=== PATIENT | female | born 1965 | race Two or more races ===

== ENCOUNTER 2019-02-04 08:48 | Inpatient (IN) | payer OTHER ==
--- NOTE | 2019-02-04 09:09 | PDOC ---
Attending Attestation - Resident Resident Name: SheltonTonja subramanian - ED Attending Attestation I have performed the following: I have examined & evaluated the patient, The case was reviewed & discussed with the resident, I agree w/resident's findings & plan, Exceptions are as noted - HPI HPI: 02/04/19 09:47 53yo female with intermittent episodes of cp over the last few weeks. Pt states L sided cp. No radiation. No sob. States intermittent palpitations. Also c/o dizziness and vertigo sensation. Pt denies n/v. States dizziness is worse when looking up and down. C/o intermittent steele. No f/c. No blurred vision or change in vision. No dysuria. No diarrhea. No abd pain. Hx of HLD. No nystagmus. Pt states dizziness is worse when laying flat and better when sitting up. - Physicial Exam PE: 02/04/19 11:31 Gen: [id number], speaks kesha and used principal librarian line heart: +s1s2 reg lungs: cta b/l abd: soft, nt/nd +bs ext: no c/c/e, no calf ttp neuro: cn ii-xii grossly intact, no nystagmus, 5/5 UE and LE strength, normal finger to nose, perrl, eomi, mmm, sensation intact - Medical Decision Making 02/04/19 11:32 a/p: 53yo female with hx of HLD with intermittent cp and palpitations and dizziness -concern for central causes of dizziness -will send labs and head ct -also concerned for cp - will send trops -will place on a digital media intern -will most likely need obs for neuro eval and cards eval for cp and dizziness -will send TSH for palpitations -no pleuritic cp, no PE risk factors 02/04/19 11:[address] negative no elevated wbc, h/h stable chem pending 02/04/19 12:54 elevated tsh trop negative added on free t4 microblog sent to [facility] for obs for cp and dizziness eval currently not dizzy or vertiginous. 02/04/19 13:[address] yaritza winslow Heart Score/ECG Review - ECG Intrepretation Comment:: 02/04/19 11:33 sinus at 70, nl axis, nl interval, no acute st/t wave findings
[2019-02-04] MEDS ORDERED: MECLIZINE HCL 25 MG TABLET (FP) PO ONE ×2 (09:55→11:43)
--- NOTE | 2019-02-04 10:06 | PDOC ---
History of Present Illness - General Chief Complaint: Lightheaded Stated Complaint: DIZZINESS Time Seen by Provider: 02/04/19 09:02 History Source: Patient Exam Limitations: Language Barrier (Oriana only, director of assessing phone) - History of Present Illness Initial Comments: 53 yo F PMH HLD, HTN, p/w consistent "room spinning" sensation for the last two days. It is triggered by laying down, and by moving her head either up or down, but not by moving left or right. She had R ear pain a week ago that she put some Ayurvedic drops in; this has since resolved. She also had L chest pain a month ago, which she did not do anything for. This is intermittently present currently. She has not tried any medications at home. ROS Endorses tingling in both hands She denies weakness, sensation of palpitations, diplopia, tinnitus, current CP, SOB, N/V, constipation/diarrhea, fevers/chills. 02/04/19 10:01 02/04/19 14:11 Past History - Past Medical History Allergies/Adverse Reactions: Allergies Allergy/AdvReac Type Severity Reaction Status Date / Time No Known Allergies Allergy Verified 02/04/19 08:52 Home Medications: Ambulatory Orders Fenofibrate,Micronized [Fenofibrate] 134 mg PO HS 02/04/19 Simvastatin [Zocor -] 40 mg PO HS 02/04/19 COPD: No Hypercholesterolemia: Yes - Suicide/Smoking/Psychosocial Hx Smoking History: Never smoked Information on smoking cessation initiated: No Review of Systems - Review of Systems Able to Perform ROS?: Yes Constitutional: No: Chills, Fever, Weakness HEENTM: No: Eye Pain, Blurred Vision, Double Vision, Tinnitus, Hearing Loss Respiratory: No: Cough, Shortness of Breath Cardiac (ROS): Yes: Chest Pain (comes and goes, L sided). No: Palpitations ABD/GI: No: Constipated, Diarrhea, Nausea, Vomiting Neurological: Yes: Tingling (both hands). No: Headache *Physical Exam - Vital Signs Last Vital Signs Temp Pulse Resp BP Pulse Ox 98.3 F 65 18 137/70 100 02/04/19 08:49 02/04/19 08:49 02/04/19 08:49 02/04/19 08:49 02/04/19 08:49 - Physical Exam General Appearance: Yes: Nourished, Appropriately Dressed HEENT: positive: EOMI, AUSTYN, Normal ENT Inspection, Normal Voice, Symmetrical, TMs Normal, Hearing Grossly Normal, Other (no nystagmus). negative: TM Bulging Neck: positive: Normal Thyroid, Supple. negative: Tender Respiratory/Chest: positive: Lungs Clear, Normal Breath Sounds Cardiovascular: positive: Regular Rhythm, Regular Rate, S1, S2, Other Gastrointestinal/Abdominal: positive: Normal Bowel Sounds, Soft. negative: Tender Musculoskeletal: positive: Normal Inspection. negative: CVA Tenderness Integumentary: positive: Normal Color, Dry, Warm Neurologic: positive: browning processor II-XII NML intact, Fully Oriented, Alert, Normal Mood/ Affect, Normal Response, Motor Strength 5/5, Finger to Nose (intact, no dysmetria). negative: Facial Droop, Sensory Deficit ED Treatment Course - LABORATORY CBC & Chemistry Diagram: 02/04/19 10:20 02/04/19 10:20 - RADIOLOGY Radiology Studies Ordered: Category Date Time Status HEAD CT (STROKE) [CT] Stat CT Scan 02/04/19 09:55 Ordered Radiograph Interpretation: CT head reviewed. No hemorrhage, infarct, or lesion noted. 02/04/19 11:40 Medical Decision Making - Medical Decision Making Patient history is concerning for ACS vs dysrhythmia vs stroke vs peripheral vs central vertigo. Will get CBC, CMP, trops, EKG, CT head, UA, thyroid panel. Will give meclizine 25 PO, 1L NS, and Reglan after ensuring QTc is not elongated. 02/04/19 10:05 EKG reviewed. NSR, HR 70, no STEMI. Reglan ordered. 02/04/19 10:10 CT head negative, labs pending. Patient continues to feel symptoms, another meclizine 25mg PO ordered. Will plan for neurology c/s and inpatient admission for MRI. 02/04/19 11:44 CXR reviewed, no acute chest pathology seen. Patient feels better after second dose of meclizine. 02/04/19 12:04 Labs reviewed, notable for elevated TSH. 02/04/19 12:[address] Troncoso with Neuro. 02/04/19 14:10 Patient reassessed, dizziness has returned. Plan to give 0.5 mg of Ativan. 02/04/19 14:20 Attending discussed case with Dr. Dodson, plan to admit. 02/04/19 14:24 *DC/Admit/Observation/Transfer Diagnosis at time of Disposition: Dizziness - Discharge Dispostion Condition at time of disposition: Improved Decision to Admit order: Yes - Referrals Referrals: Jaky Arnold [Primary Care Provider] - - Patient Instructions - Post Discharge Activity
[2019-02-04] MEDS ORDERED: METOCLOPRAMIDE HCL INJECTION 10 MG/2 ML VIAL IVPB ONE (10:08)
[2019-02-04] MEDS ORDERED: MECLIZINE HCL 25 MG TABLET (FP) ONE ×2 (10:26→11:47)
[2019-02-04] MEDS: SODIUM CHLORIDE 1,000 ML IV SCH (10:38)
[2019-02-04] MEDS ORDERED: METOCLOPRAMIDE HCL INJECTION 10 MG/2 ML VIAL ONE (10:41)
[2019-02-04 11:10] LABS: URINE APPEARANCE CLEAR; URINE BILIRUBIN NEGATIVE (NEGATIVE); URINE COLOR YELLOW; URINE GLUCOSE (UA) NEGATIVE (NEGATIVE); URINE KETONE NEGATIVE (NEGATIVE); URINE LEUK ESTERASE NEGATIVE (NEGATIVE); URINE NITRITE NEGATIVE (NEGATIVE); URINE PROTEIN NEGATIVE (NEGATIVE); URINE UROBILINOGEN 0.2 mg/dL (0.2-1.0)
[2019-02-04 11:21] LABS: HEMATOCRIT 38.2 % (32.4-45.2); HEMOGLOBIN 12.2 GM/dL (10.7-15.3); MCH 28.1 pg (25.7-33.7); MCHC 31.9 g/dl (32.0-36.0); MEAN CELL VOLUME 87.9 fl (80-96); MEAN PLT VOLUME 10.7 fl (7.5-11.1); PLATELET COUNT 176 K/MM3 (134-434); RBC 4.34 M/mm3 (3.60-5.2); RDW 13.3 % (11.6-15.6); WHITE BLOOD COUNT 8.5 K/mm3 (4.0-10.0)
[2019-02-04 11:54] LABS: INR 0.9 (0.83-1.09); PROTHROMBIN TIME (PATIENT) 10.6 SEC (9.7-13.0)
[2019-02-04 11:57] LABS: ACTIVATED PTT 35.4 SECONDS (25.2-36.5)
[2019-02-04 12:16] LABS: ALK PHOS 66 U/L (45-117); ANION GAP 8 MMOL/L (8-16); BILIRUBIN,TOTAL 0.4 mg/dL (0.2-1); CALCIUM 9.5 mg/dL (8.5-10.1); CHLORIDE 108 mmol/L (98-107); CO2 26 mmol/L (21-32); CREATININE 0.8 mg/dL (0.55-1.3); GLUCOSE,RANDOM 136 mg/dL (74-106); POTASSIUM 4.2 mmol/L (3.5-5.1); SGOT/AST 33 U/L (15-37); SGPT/ALT 37 U/L (13-61); SODIUM 142 mmol/L (136-145); TOT PROT 7.5 g/dl (6.4-8.2)
--- NOTE | 2019-02-04 13:45 | EKG ---
Test Reason : Blood Pressure : / mmHG Vent. Rate : 070 BPM Atrial Rate : 070 BPM P-R Int : 164 ms QRS Dur : 082 ms QT Int : 378 ms P-R-T Axes : 052 059 059 degrees QTc Int : 408 ms NORMAL SINUS RHYTHM LEFT ATRIAL ENLARGEMENT BORDERLINE ECG NO PREVIOUS ECGS AVAILABLE Confirmed by MD SHAUNA, LINDA ([id number]) on 02/04/2019 1:44:43 PM Referred By: Confirmed By:LINDA VILLATORO MD
[2019-02-04] MEDS ORDERED: LORazepam 0.5 MG TABLET PO ONE (14:21)
[2019-02-04] MEDS ORDERED: LORazepam 0.5 MG TABLET ONE (14:23)
[2019-02-04 18:55] VITALS: BMI 28.1
[2019-02-04] MEDS: FENOFIBRIC ACID 135 MG CAP PO SCH (22:29)
[2019-02-04] MEDS: ATORVASTATIN CA 20 MG TABLET (FP) PO SCH (22:29)
[2019-02-05] MEDS: LEVOTHYROXINE NA 25 MCG TABLET (FP) PO SCH (06:03)
[2019-02-05 07:38] LABS: ALBUMIN 3.5 g/dl (3.4-5.0); ALK PHOS 56 U/L (45-117); ANION GAP 6 MMOL/L (8-16); BILIRUBIN,TOTAL 0.3 mg/dL (0.2-1); BLOOD UREA NITROGEN 8.3 mg/dL (7-18); CALCIUM 9.1 mg/dL (8.5-10.1); CHLORIDE 109 mmol/L (98-107); CHOLESTEROL 139 mg/dL (50-200); CO2 27 mmol/L (21-32); CREATININE 0.8 mg/dL (0.55-1.3); GLUCOSE,RANDOM 110 mg/dL (74-106); HDL CHOLESTEROL 55 mg/dL (40-60); POTASSIUM 4.3 mmol/L (3.5-5.1); SGOT/AST 14 U/L (15-37); SGPT/ALT 30 U/L (13-61); SODIUM 142 mmol/L (136-145); TOT PROT 6.6 g/dl (6.4-8.2); TRIGLYCERIDES 79 mg/dL (0-150)
[2019-02-05 07:41] LABS: BASO % 0.3 % (0-2.0); EOS % 2.5 % (0-4.5); HEMATOCRIT 37.8 % (32.4-45.2); HEMOGLOBIN 12.3 GM/dL (10.7-15.3); LYMPH % 35.9 % (8-40); MCH 28.7 pg (25.7-33.7); MCHC 32.6 g/dl (32.0-36.0); MEAN PLT VOLUME 9.8 fl (7.5-11.1); MONO % 6.5 % (3.8-10.2); NEUT % 54.8 % (42.8-82.8); PLATELET COUNT 215 K/MM3 (134-434); RBC 4.29 M/mm3 (3.60-5.2); RDW 13.3 % (11.6-15.6); WHITE BLOOD COUNT 7.1 K/mm3 (4.0-10.0)
--- NOTE | 2019-02-05 09:01 | CON.CARD ---
Consult Consult Specialty:: Cardiology Referred by:: Dr. Dodson Reason for Consultation:: Dizziness - History of Present Illness Chief Complaint: Dizziness History of Present Illness: 53F with Hyperlipidemia presents to ER for evaluation of dizziness. She describes dizziness with changes in head position. Room spinning. Denies CP, SOB, palpitations. Head CT in ER negative for bleed, mass, CVA. ECG NSR, Tele NSR. Has not had similar sx previously. Denies syncope, PND, orthopnea. Per ER documentation, she also initially described left sided CP for 1-2 weeks. With and without exertion. - History Source History Provided By: Patient, Medical Record Limitations to Obtaining History: No Limitations - Past Medical History Cardio/Vascular: Yes: HTN, Hyperlipdemia Pulmonary: No: Asthma, Bronchitis, Cancer, COPD, O2 Dependent, Pneumonia, Previously Intubated, Pulmonary Embolus, Pulmonary Fibrosis, Sleep Apnea, Other Gastrointestinal: No: Ascites, Cancer, Constipation, Crohn's Disease, Diverticulitis, Diverticulosis, Esophageal Varices, Gastritis, GERD, GI Bleed, Hemorrhoids, Hiatal Hernia, Inflamatory Bowel Disease, Irritable Bowel Disease, Pancreatitis, Peptic Ulcer Disease, Ulcerative Colitis, Other Hepatobiliary: No: Cirrhosis, Cholelithiasis, Cholecystitis, Choledocholithiasis , Hepatitis A, Hepatitis B, Hepatitis C, Other Renal/: No: Renal Failure, Renal Inusuff, BPH, Cancer, Hematuria, Hemodialysis , Neurogenic Bladder, Renal Calculi, UTI, Other Psych: No: Addictions, Anxiety, Bipolar, Depression, Panic, Psychosis, Schizophrenia, Other Musculoskeletal: No: Bursitis, Chronic low back pain, Hemiparesis, Hemiplegia, Osteoarthritis, Paraplegia, Other ENT: No: Allergic Rhinitis, Sinusitis, Other Endocrine: Yes: Hypothyroidism Dermatology: No: Basal Cell, Cellulitis, Eczema, Melanoma, Psoriasis, Squamous Cell, Other - Alcohol/Substance Use Hx Alcohol Use: No - Smoking History Smoking history: Never smoked - Social History Place of : Other ([place]) History of Recent Travel: No Home Medications - Allergies Allergies/Adverse Reactions: Allergies Allergy/AdvReac Type Severity Reaction Status Date / Time No Known Allergies Allergy Verified 02/04/19 08:52 - Home Medications Home Medications: Ambulatory Orders Fenofibrate,Micronized [Fenofibrate] 134 mg PO HS 02/04/19 Simvastatin [Zocor -] 40 mg PO HS 02/04/19 Family Disease History - Family Disease History Family History: Unremarkable (no early CAD or SCD) Review of Systems - Review of Systems Constitutional: reports: No Symptoms Eyes: reports: No Symptoms HENT: reports: No Symptoms Neck: reports: No Symptoms Cardiovascular: reports: Chest Pain Respiratory: reports: No Symptoms Gastrointestinal: reports: No Symptoms Genitourinary: reports: No Symptoms Breasts: reports: No Symptoms Reported Musculoskeletal: reports: No Symptoms Neurological: reports: Dizziness Endocrine: reports: No Symptoms Hematology/Lymphatic: reports: No Symptoms Psychiatric: reports: No Symptoms - Risk Factors Known Risk Factors: Yes: Hypercholesterolemia, Hypertension Vital Signs: Vital Signs Temperature 98.3 F 02/05/19 05:53 Pulse Rate 67 02/05/19 05:53 Respiratory Rate 18 02/05/19 05:53 Blood Pressure 105/67 02/05/19 05:53 O2 Sat by Pulse Oximetry (%) 99 02/04/19 21:00 Constitutional: Yes: No Distress Respiratory: Yes: CTA Bilaterally Gastrointestinal: Yes: Soft Cardiovascular: Yes: Regular Rate and Rhythm JVD: No Carotid Bruit: No Edema: No Peripheral Pulses WNL: Yes Neurological: Yes: Alert, Oriented ...Motor Strength: WNL - Other Data Labs, Other Data: CBC, BMP 02/05/19 06:25 02/05/19 06:25 INR, PTT INR 0.90 (0.83-1.09) 02/04/19 10:20 Troponin, BNP 02/04/19 10:20 Troponin I < 0.02 Troponin, BNP 02/04/19 10:20 Troponin I < 0.02 nsr 70, lae. qtc = 408ms Echo: Pending Imaging - Results Chest X-ray: Report Reviewed Cat Scan: Report Reviewed EKG: Image Reviewed Assessment/Plan IMP: 1. Dizziness: Seems c/w vertigo 2. Atypical CP 3. History of HTN 4. History of HLD REC: 1. Neuro evaluation 2. Tele to r/o arrhythmia (ECG essentially normal) 3. Echo for EF assessment. 4. Re. Atypical CP: cycle cardiac enzymes and plan for stress MPI once Neuro eval is completed.
--- NOTE | 2019-02-05 09:58 | CON.NEURO ---
Consult Consult Specialty:: Aba Referred by:: ER - History of Present Illness History of Present Illness: 53-year-old right-handed female patient with essentially no medical history presented to the hospital with a chief complaint of chest pain for one month and dizziness for 1 week. In the emergency room CAT scan revealed no evidence of acute pathology patient was hemodynamically stable with no fever no report of any recent travel no report of any recent head trauma no whiplash injury patient describes the vertigo as mostly upon position with lying down. Patient denies any nausea no associated cranial nerve findings. Since admission to the telemetry patient feels about 90% better patient has been communicating with me through translation via her . Patient was seen by cardiology questionable source of chest pain would be investigated. - History Source History Provided By: Patient, Medical Record - Past Medical History Cardio/Vascular: Yes: HTN, Hyperlipdemia Pulmonary: No: Asthma, Bronchitis, Cancer, COPD, O2 Dependent, Pneumonia, Previously Intubated, Pulmonary Embolus, Pulmonary Fibrosis, Sleep Apnea, Other Gastrointestinal: No: Ascites, Cancer, Constipation, Crohn's Disease, Diverticulitis, Diverticulosis, Esophageal Varices, Gastritis, GERD, GI Bleed, Hemorrhoids, Hiatal Hernia, Inflamatory Bowel Disease, Irritable Bowel Disease, Pancreatitis, Peptic Ulcer Disease, Ulcerative Colitis, Other Hepatobiliary: No: Cirrhosis, Cholelithiasis, Cholecystitis, Choledocholithiasis , Hepatitis A, Hepatitis B, Hepatitis C, Other Renal/: No: Renal Failure, Renal Inusuff, BPH, Cancer, Hematuria, Hemodialysis , Neurogenic Bladder, Renal Calculi, UTI, Other Psych: No: Addictions, Anxiety, Bipolar, Depression, Panic, Psychosis, Schizophrenia, Other Musculoskeletal: No: Bursitis, Chronic low back pain, Hemiparesis, Hemiplegia, Osteoarthritis, Paraplegia, Other ENT: No: Allergic Rhinitis, Sinusitis, Other Endocrine: Yes: Hypothyroidism Dermatology: No: Basal Cell, Cellulitis, Eczema, Melanoma, Psoriasis, Squamous Cell, Other - Alcohol/Substance Use Hx Alcohol Use: No - Smoking History Smoking history: Never smoked - Social History History of Recent Travel: No Home Medications - Allergies Allergies/Adverse Reactions: Allergies Allergy/AdvReac Type Severity Reaction Status Date / Time No Known Allergies Allergy Verified 02/04/19 08:52 - Home Medications Home Medications: Ambulatory Orders Fenofibrate,Micronized [Fenofibrate] 134 mg PO HS 02/04/19 Simvastatin [Zocor -] 40 mg PO HS 02/04/19 Family Disease History - Family Disease History Family History: Denies (stroke) Review of Systems - Review of Systems Constitutional: reports: No Symptoms Eyes: reports: No Symptoms Neurological: reports: Dizziness, Headache, Incoordination Physical Exam-Neuro Vital Signs: Vital Signs Temperature 98.3 F 02/05/19 05:53 Pulse Rate 67 02/05/19 05:53 Respiratory Rate 18 02/05/19 05:53 Blood Pressure 105/67 02/05/19 05:53 O2 Sat by Pulse Oximetry (%) 99 02/04/19 21:00 Constitutional: Yes: Well Nourished Neck: Yes: WNL Cardiovascular: Yes: WNL Labs: CBC, BMP 02/05/19 06:25 02/05/19 06:25 INR, PTT INR 0.90 (0.83-1.09) 02/04/19 10:20 - Neuro Exam Level Of Consciousness: Yes: Oriented to Person, Oriented to Place, Oriented to Time Eyes: Yes: PERRLA Speech: WNL Dominant Hand: Right Cranial Nerves II-XII Intact: Yes Gag: Present DTR's: 1+ Left Bicep, 1+ Right Bicep, 1+ Left Tricep, 1+ Right Tricep Response to light touch: Normal Response to pain prick: Normal Response to temperature: Normal Motor Strength: 3/5: Left Arm, Right Arm, Left Leg, Right Leg Gait: Deferred Imaging - Results Cat Scan: Image Reviewed Problem List - Problems (1) Dizziness Assessment/Plan: 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 Neuro checks every 1 hour. 2. Follow-up with cardiology. 3. MRI of the brain with no contrast. 4. Meclizine when necessary. 55. Fall precautions Thank you very much for allowing me to be part of this patient's neurological care Code(s): R42 - DIZZINESS AND GIDDINESS
--- NOTE | 2019-02-05 11:57 | HP ---
Admitting History and Physical - Primary Care Physician PCP: Fabian Arnold - Admission History of Present Illness: Pt seen/ examined chart reviewed 53yo female with hx of HLD with intermittent cp and palpitations and dizziness-- Admitted to tele All consults noted/ appreciated ekg/ cxr / ct head/ u/s carotid unremarkable MRi has been ordered and stress test likely tomorrow. Pt feels better Denies cp/sob/abd pain today History Source: Patient Limitations to Obtaining History: No Limitations - Past Medical History Cardiovascular: Yes: Hyperlipdemia. No: HTN Pulmonary: No: Asthma, Bronchitis, Cancer, COPD, O2 Dependent, Pneumonia, Previously Intubated, Pulmonary Embolus, Pulmonary Fibrosis, Sleep Apnea, Other Gastrointestinal: No: Ascites, Cancer, Constipation, Crohn's Disease, Diverticulitis, Diverticulosis, Esophageal Varices, Gastritis, GERD, GI Bleed, Hemorrhoids, Hiatal Hernia, Inflamatory Bowel Disease, Irritable Bowel Disease, Pancreatitis, Peptic Ulcer Disease, Ulcerative Colitis, Other Hepatobiliary: No: Cirrhosis, Cholelithiasis, Cholecystitis, Choledocholithiasis , Hepatitis A, Hepatitis B, Hepatitis C, Other Renal/: No: Renal Failure, Renal Inusuff, BPH, Cancer, Hematuria, Hemodialysis , Neurogenic Bladder, Renal Calculi, UTI, Other Psych: No: Addictions, Anxiety, Bipolar, Depression, Panic, Psychosis, Schizophrenia, Other Musculoskeletal: No: Bursitis, Chronic low back pain, Hemiparesis, Hemiplegia, Osteoarthritis, Paraplegia, Other ENT: No: Allergic Rhinitis, Sinusitis, Other Endocrine: Yes: Hypothyroidism Dermatology: No: Basal Cell, Cellulitis, Eczema, Melanoma, Psoriasis, Squamous Cell, Other - Smoking History Smoking history: Never smoked - Alcohol/Substance Use Hx Alcohol Use: No - Social History History of Recent Travel: No Home Medications - Allergies Allergies/Adverse Reactions: Allergies Allergy/AdvReac Type Severity Reaction Status Date / Time No Known Allergies Allergy Verified 02/04/19 08:52 - Home Medications Home Medications: Ambulatory Orders Fenofibrate,Micronized [Fenofibrate] 134 mg PO HS 02/04/19 Simvastatin [Zocor -] 40 mg PO HS 02/04/19 Family Disease History - Family Disease History Family History: Unremarkable Review of Systems - Review of Systems Constitutional: reports: Other (dizziness) Eyes: reports: No Symptoms HENT: reports: No Symptoms Neck: reports: No Symptoms Cardiovascular: reports: Chest Pain. denies: No Symptoms Respiratory: reports: No Symptoms Gastrointestinal: reports: No Symptoms Genitourinary: reports: No Symptoms Musculoskeletal: reports: No Symptoms Neurological: reports: Dizziness Endocrine: reports: No Symptoms Psychiatric: reports: No Symptoms Physical Examination Vital Signs: Vital Signs Temperature 98.4 F 02/05/19 10:00 Pulse Rate 75 02/05/19 10:00 Respiratory Rate 18 02/05/19 10:00 Blood Pressure 113/73 02/05/19 10:00 O2 Sat by Pulse Oximetry (%) 97 02/05/19 09:00 Constitutional: Yes: No Distress, Calm Eyes: Yes: WNL, Conjunctiva Clear HENT: Yes: WNL Neck: Yes: WNL, Supple Cardiovascular: Yes: Regular Rate and Rhythm Respiratory: Yes: CTA Bilaterally Gastrointestinal: Yes: Normal Bowel Sounds, Soft Edema: No Neurological: Yes: WNL, Alert ...Motor Strength: WNL Psychiatric: Yes: WNL Labs: CBC, BMP 02/05/19 06:25 02/05/19 06:25 Imaging - Results Chest X-ray: Report Reviewed Cat Scan: Report Reviewed EKG: Report Reviewed Problem List - Problems (1) Dizziness Code(s): R42 - DIZZINESS AND GIDDINESS (2) Hyperlipemia Code(s): E78.5 - HYPERLIPIDEMIA, UNSPECIFIED (3) Chest pain Code(s): R07.9 - CHEST PAIN, UNSPECIFIED (4) Hypothyroidism Code(s): E03.9 - HYPOTHYROIDISM, UNSPECIFIED Assessment/Plan Discussed Monitor on Tele For Arythmia MRI today started on Synthroid oob - chair continue meds stress test - Likely tomorrow Will follow Discussed with nursing staff also Dvt prophylaxis
--- NOTE | 2019-02-05 12:51 | ECHO ---
Name: DEZ DURAN Exam:Adult Echocardiogram Study Date: 02/05/2019 09:54 AM Age: 53 yrs Reason For Study: DIZZINESS Height: 60 in Weight: 160 lb BSA: 1.7 m2 MMode/2D Measurements & Calculations IVSd: 0.73 cm Ao root diam: 2.6 cm LVIDd: 3.7 cm LA dimension: 2.8 cm LVIDs: 2.7 cm LVPWd: 0.72 cm EDV(Teich): 58.9 ml LVOT diam: 1.9 cm ESV(Teich): 26.9 ml Doppler Measurements & Calculations MV E max fareed: 72.9 cm/sec Ao V2 max: 132.3 cm/sec MV A max fareed: 83.4 cm/sec Ao max P.0 mmHg MV E/A: 0.88 Ao V2 mean: 90.3 cm/sec Ao mean P.7 mmHg Ao V2 VTI: 25.4 cm DESHAWN(I,D): 1.9 cm2 DESHAWN(V,D): 2.0 cm2 LV V1 max P.4 mmHg SV(LVOT): 47.7 ml LV V1 mean P.5 mmHg LV V1 max: 92.6 cm/sec LV V1 mean: 57.1 cm/sec LV V1 VTI: 16.9 cm Med Peak E' Fareed: 7.0 cm/sec Med E/e': 10.4 Lat Peak E' Fareed: 11.2 cm/sec Lat E/e': 6.5 Procedure The study was technically adequate with some images being suboptimal in quality. Left Ventricle The left ventricular size, thickness and function are normal. Ejection Fraction = 60-65%. Right Ventricle The right ventricle is normal in size and function. Atria Normal left and right atrial size and function. Mitral Valve The mitral valve is grossly normal. There is trace mitral regurgitation. Tricuspid Valve The tricuspid valve is not well visualized. There is trace tricuspid regurgitation. There was insuffi cient TR detected to calculate RV systolic pressure. Aortic Valve There is mild aortic sclerosis.;. The aortic valve opens well. No aortic regurgitation is present. Pulmonic Valve The pulmonic valve is not well visualized. There is no pulmonic valvular regurgitation. Great Vessels The aortic root is normal size. Pericardium/Pleura There is no pericardial effusion. Interpretation Summary There is no comparison study available. The left ventricular size, thickness and function are normal Ejection Fraction = 60-65%. The right ventricle is normal in size and function. There is trace mitral regurgitation. Lai Sanabria MD 02/05/2019 12:51 PM
[2019-02-05] MEDS: SODIUM CHLORIDE 1,000 ML IV SCH (20:58)
[2019-02-05] MEDS: ATORVASTATIN CA 20 MG TABLET (FP) PO SCH (22:30)
[2019-02-05] MEDS: FENOFIBRIC ACID 135 MG CAP PO SCH (22:30)
[2019-02-06 03:54] VITALS: BP 135/60; PULSE 74; TEMP 98
[2019-02-06] MEDS: LEVOTHYROXINE NA 25 MCG TABLET (FP) PO SCH (06:46)
--- NOTE | 2019-02-06 14:07 | PN ---
Progress Note, Physician Chief Complaint: MRI brain neg TELE: NSR ECHO WNL Nuclear stress reviewed: no ischemia, normal EF, no TID (my review) - Current Medication List Current Medications: Active Medications Atorvastatin Calcium (Lipitor -) 20 mg PO [facility] Last Admin: 02/05/19 22:30 Dose: 20 mg Fenofibric Acid (Trilipix -) 135 mg PO [facility] Last Admin: 02/05/19 22:30 Dose: 135 mg Sodium Chloride (Normal Saline -) 1,000 mls @ 125 mls/hr IV [facility] Last Admin: 02/05/19 20:58 Dose: Not Given Levothyroxine Sodium (Synthroid -) 25 mcg PO DAILY@0700 [facility] Last Admin: 02/06/19 06:46 Dose: 25 mcg - Objective Vital Signs: Vital Signs Temperature 98 F 02/06/19 02:00 Pulse Rate 74 02/06/19 02:00 Respiratory Rate 18 02/06/19 02:00 Blood Pressure 135/60 02/06/19 02:00 O2 Sat by Pulse Oximetry (%) 97 02/05/19 21:00 Constitutional: Yes: No Distress, Calm Cardiovascular: Yes: Regular Rate and Rhythm Respiratory: Yes: CTA Bilaterally Gastrointestinal: Yes: Soft Edema: No Neurological: Yes: Alert, Oriented ...Motor Strength: WNL Labs: CBC, BMP 02/05/19 06:25 02/05/19 06:25 INR, PTT INR 0.90 (0.83-1.09) 02/04/19 10:20 - ....Imaging EKG: Image Reviewed (NSR, no arrhythmias) Assessment/Plan IMP: 1. Dizziness: c/w BPV. No arrhythmias, normal EF, no obstx carotid dz 2. Atypical CP with negative enzymes and normal nuclear stress test. 3. History of HTN 4. History of HLD REC: 1. Neuro evaluation appreciated. 2. Tele unremarkable. 3. Echo w/ normal LVEF and no sig valve dz. 4. Negative work up for atypical CP including enzymes and normal nuclear stress. Ok to d/c tele and to d/c home with outpt cardiac f/u 5. Trial of Meclizine may be helpful
--- NOTE | 2019-02-10 00:22 | DS ---
Physical Examination Vital Signs: Vital Signs Temperature 98 F 02/06/19 02:00 Pulse Rate 74 02/06/19 02:00 Respiratory Rate 18 02/06/19 09:00 Blood Pressure 135/60 02/06/19 02:00 O2 Sat by Pulse Oximetry (%) 97 02/06/19 09:00 Findings/Remarks: see progress not e of Dr. Smith 02/06/19 Labs: CBC, BMP 02/05/19 06:25 02/05/19 06:25 Discharge Summary Reason For Visit: DIZZINESS Hospital Course: admitted for dizziness/ cp work up -ve d/c home' f/u with pmd - one week Condition: Improved - Instructions Disposition: HOME - Home Medications Comprehensive Discharge Medication List: Ambulatory Orders Fenofibrate,Micronized [Fenofibrate] 134 mg PO HS 02/04/19 Simvastatin [Zocor -] 40 mg PO HS 02/04/19 Levothyroxine [Synthroid -] 25 mcg PO DAILY@0700 #30 tablet 02/06/19 Meclizine HCl 12.5 mg PO Q8H PRN #20 tablet 02/06/19
--- NOTE | 2019-02-12 10:52 | PN ---
Progress Note (short form) - Note Progress Note: pt under my care at [facility]--02/04-- 02/10/19 She can join duty as of 02/12/19. No restrictions. Problem List - Problems (1) Dizziness Code(s): R42 - DIZZINESS AND GIDDINESS (2) Hyperlipemia Code(s): E78.5 - HYPERLIPIDEMIA, UNSPECIFIED (3) Chest pain Code(s): R07.9 - CHEST PAIN, UNSPECIFIED (4) Hypothyroidism Code(s): E03.9 - HYPOTHYROIDISM, UNSPECIFIED
== END 2019-02-06 15:48 | disposition home or self-care (01) | DRG 111 ==
LOC: JER 08:48 → JERBED 13:02 → J4W 17:17
PROVIDERS: ADMIT Internal Medicine; ATTEND Internal Medicine
DX: H81.10 Benign paroxysmal vertigo, unspecified ear (principal); E78.5 Hyperlipidemia, unspecified; I10 Essential (primary) hypertension; R07.89 Other chest pain; E03.9 Hypothyroidism, unspecified
CPT/HCPCS: 36415; 70450-TC; 70551-TC; 71045-TC-FY; 78452-TC; 80053; 80061; 81003; 82550; 83036; 83721; 83735; 84439; 84443; 84484; 85025; 85027; 85610; 85730; 93005; 93010; 93017; 93306-TC; 93880-TC; 99282-25; A9502; J7030

== ENCOUNTER 2022-09-07 04:14 | Day surgery (SDC) | payer BC, OTHER ==
[2022-09-02 10:00] VITALS: BMI 27.9
[2022-09-07] MEDS ORDERED: PROPOFOL 20 ML ONE (10:38)
[2022-09-07] MEDS ORDERED: LIDOCAINE HCL/PF 2% SDV 5ML VIAL ONE (10:38)
[2022-09-07] MEDS ORDERED: MIDAZOLAM HCL 2 MG/2 ML SINGLE DOSE VIAL ONE (10:39)
[2022-09-07] MEDS ORDERED: ELECTROLYTE-148 SOLN 1,000 ML IV SCH (10:45)
[2022-09-07] MEDS ORDERED: ONDANSETRON 4 MG/2 ML VIAL ONE (10:53)
[2022-09-07] MEDS ORDERED: KETOROLAC TROMETHAMINE 30 MG/1 ML VIAL ONE (10:53)
[2022-09-07] MEDS ORDERED: DEXAMETHASONE SOD PHOSPHATE 4 MG/1 ML VIAL ONE (10:53)
[2022-09-07] MEDS ORDERED: ceFAZolin SODIUM 1 GM VIAL ONE (10:53)
[2022-09-07] MEDS ORDERED: ceFAZolin SODIUM 1 GM VIAL IVPB ONE (11:01)
[2022-09-07] MEDS ORDERED: oxyCODONE HCL 5 MG TABLET PO PRN ×2 (11:44)
[2022-09-07] MEDS ORDERED: PROMETHAZINE HCL 25 MG/1 ML VIAL IVPB PRN (11:44)
[2022-09-07] MEDS ORDERED: ONDANSETRON 4 MG/2 ML VIAL IVPUSH PRN (11:44)
[2022-09-07] MEDS ORDERED: ACETAMINOPHEN 1000 MG/100 ML BAG IVPB ONE (11:44)
[2022-09-07] MEDS ORDERED: LACTATED RINGERS SOLUTION 1,000 ML IV SCH (11:45)
[2022-09-07] MEDS ORDERED: oxyCODONE HCL 5 MG TABLET ONE (13:57)
[2022-09-07 15:03] VITALS: RESP 20; TEMP 97.2
[2022-09-07 15:06] VITALS: BP 121/78; PULSE 70
== END 2022-09-07 14:43 | disposition home or self-care (01) ==
LOC: JASU-SURG 04:14
PROVIDERS: ATTEND Urology
PROC: 0TF38ZZ Fragmentation in Right Kidney Pelvis, Via Natural or Artificial Opening Endoscopic (ICD-10-PCS; principal; 2022-09-07 10:45)
PROC: 0T768DZ Dilation of Right Ureter with Intraluminal Device, Via Natural or Artificial Opening Endoscopic (ICD-10-PCS; 2022-09-07 10:45)
DX: N20.0 Calculus of kidney (principal)
CPT/HCPCS: 76000-TC-FY; 81025; 82962; 94760; C1747; C2617